=== PATIENT | female | born 1955 | race Caucasian/White ===

== ENCOUNTER 2018-02-20 08:43 | Emergency (ER) | payer OTHER ==
[~2018-02-20] VITALS: Ht 167.6 cm; Wt 109.6 kg
[~2018-02-20 08:43] MED LIST: HYDR25TA5 PO; METO50TA16 PO; RIVA1.5T PO
[2018-02-20 08:54] VITALS: TEMP 36.8; Ht 167.6 cm; Wt 109.6 kg
[2018-02-20 09:28] LABS: BASO % 0.2 %; BASO ABS # 0.01 K/uL (0-0.2); EOS % 0.9 %; EOS ABS # 0.05 K/uL (0-0.5); HEMATOCRIT 38.8 % (37-47); HEMOGLOBIN 12.9 g/dL (12.0-16.0); IG# 0.02 K/uL (0.00-0.02); LYMPH % 26.3 %; LYMPH ABS # 1.41 K/uL (1.2-3.4); MEAN CORPUSCULAR HEMOGLOBIN 31.9 pg (25-34); MEAN CORPUSCULAR HGB CONC 33.2 g/dl (32-36); MEAN PLATELET VOLUME 10.5 fL (7.4-10.4); MONO % 12.1 %; MONO ABS # 0.65 K/uL (0.11-0.59); NEUT % 60.1 %; NEUT ABS # 3.23 K/uL (1.4-6.5); PLATELET COUNT 193 K/uL (130-400); RED CELL DISTRIBUTION WIDTH CV 12.8 % (11.5-14.5); RED CELL DISTRIBUTION WIDTH SD 44.7 fL (36.4-46.3); WHITE BLOOD COUNT 5.37 K/uL (4.8-10.8)
--- NOTE | 2018-02-20 09:38 | DIAGNOSTIC IMAGING REPORT ---
CHEST ONE VIEW PORTABLE CLINICAL HISTORY: Fever, sepsis, shortness of breath. COMPARISON STUDY: 02/19/2018 FINDINGS: The cardiac and mediastinal contours are normal. There is no evidence of focal pulmonary consolidation. There is no evidence of failure. No pleural effusions are visualized.[ Slight prominence of the basilar markings, are likely secondary to atelectatic changes IMPRESSION: No active disease in the chest. Electronically signed by: Telly Lora M.D. 02/20/2018 9:37 AM Dictated Date/Time: 02/20/2018 9:36 AM
[2018-02-20 09:45] LABS: BLOOD UREA NITROGEN 13 mg/dl (7-18); CALCIUM 8.1 mg/dl (8.5-10.1); CARBON DIOXIDE 24 mmol/L (21-32); CREATININE 1.02 mg/dl (0.60-1.20); GLUCOSE 90 mg/dl (70-99); POTASSIUM 3.6 mmol/L (3.5-5.1); SODIUM 141 mmol/L (136-145)
[2018-02-20 09:50] LABS: CKMB 1.6 ng/ml (0.5-3.6)
[2018-02-20] MEDS ORDERED: MULT-506 PO (09:51)
[2018-02-20] MEDS ORDERED: METO25TA56 PO (09:51)
[2018-02-20] MEDS ORDERED: OMEG10007 PO (09:51)
[2018-02-20] MEDS ORDERED: LEVO75TA5 PO (09:51)
[2018-02-20] MEDS ORDERED: NIAC50TA9 PO (09:51)
[2018-02-20] MEDS ORDERED: GLIM1TAB2 PO (09:51)
[2018-02-20] MEDS ORDERED: TURM500T PO (09:51)
[2018-02-20 09:52] LABS: PTT PATIENT 25.4 SECONDS (21.0-31.0)
[2018-02-20] MEDS ORDERED: OPTIRAY 320 IV PRN (10:00)
--- NOTE | 2018-02-20 10:19 | DIAGNOSTIC IMAGING REPORT ---
CT ANGIOGRAM OF THE CHEST CLINICAL HISTORY: Fever, sepsis, shortness of breath. COMPARISON STUDY: 11/21/2014 TECHNIQUE: Following the IV administration of 94 mL of Optiray-320, CT angiogram of the thorax was performed from the thoracic inlet to the lung bases utilizing the pulmonary embolus protocol. Images are reviewed in the axial, sagittal, and coronal planes. IV contrast was administered without complication. MIP imaging was performed. A dose lowering technique was utilized adhering to the principles of ALARA. CT DOSE: 685.05 mGy.cm FINDINGS: There is hepatic steatosis. Mediastinal and hilar lymph nodes are the upper limits of normal in size There was no evidence of thoracic aortic dilatation. There is a tiny right lower lobe pulmonary artery filling defect. A similar but larger filling defect was present on the 2014 study. It is therefore difficult to determine whether this is acute or chronic. No pleural effusions are visualized. There is respiratory motion artifact. There are dependent atelectatic changes. There is mild lower lobe bronchial wall thickening. There is no lobar consolidation. There is a calcified right upper lobe granuloma. There is a noncalcified 3 mm right upper lobe pulmonary nodule as visualized in image #217/288. This measured 2 mm in 2015. There is a 2.5 mm left lower lobe point nodule as visualized in image #138/288. Also evident is a 2.5 mm left lower pulmonary nodule as visualized in image #119/288. IMPRESSION: 1. Tiny right lower lobe pulmonary artery embolus. This is smaller than on the prior November 2014 study, and is therefore age-indeterminate. Correlation with leg ultrasonography would seem prudent. 2. Hepatic steatosis 3. Scattered tiny pulmonary nodules. In a low risk patient, no further follow-up is indicated. In a high risk patient, a 12 month follow-up is optional. Please refer to below summary of Fleischner criteria recommendations for follow-up of incidental CT nodules (Soraya Puga, Guidelines for management of small pulmonary nodules detected on CT scans: A statement from the Fleischner Society, Radiology 237: [phone].) SOLID NODULES Solitary nodule size: <6 mm * low risk patients: no follow-up needed * high risk patients: optional CT at 12 months Solitary nodule size: 6-8 mm * low risk patients: follow-up at 6-12 months, then consider further follow-up at 18-24 months * high risk patients: initial follow-up CT at 6-12 months and then at 18-24 months if no change Solitary nodule size: >8 mm * either low or high risk patients - consider follow-up CT at 3 months, and/or CT-PET, and/or biopsy Multiple nodules size: <6 mm * low risk patients: no routine follow-up * high risk patients: optional CT at 12 months Multiple nodules size: 6-8 mm * low risk patients: follow-up at 3-6 months, then consider further follow-up at 18-24 months * high risk patients: follow-up at 3-6 months, then at 18-24 months if no change Multiple nodules size: >8 mm * low risk patients: follow-up at 3-6 months, then consider further follow-up at 18-24 months * high risk patients: follow-up at 3-6 months, then at 18-24 months if no change Note: newly detected indeterminate nodule in persons 35 years of age or older. * low risk patients: minimal or absent history of smoking and/or other known risk factors * high risk patients: history of smoking or of other known risk factors (e.g. first degree relative with lung cancer, or exposure to asbestos, radon, uranium) * if a nodule up to 8 mm is partly solid or is ground glass further follow-up is required after 24 months to exclude possible slow growing adenocarcinoma (JAYLENE) SUBSOLID NODULES Solitary pure ground-glass nodule * nodule size <6 mm - no CT follow-up required * nodule size >=6 mm - follow-up CT at 6-12 months, then every 2 years until 5 years Solitary part-solid nodule * nodule size <6 mm - no CT follow-up required * nodule size >=6 mm - follow-up CT at 3-6 months. If unchanged, and solid component remains <6 mm, then annual follow-up for 5 years Multiple subsolid nodules * nodule size <6 mm - follow-up CT at 3-6 months, consider further follow-up at 2 and 4 years if stable * nodule size >=6 mm - follow-up CT at 3-6 months, subsequent management based on the most suspicious nodule(s) Electronically signed by: Telly Lora M.D. 02/20/2018 10:17 AM Dictated Date/Time: 02/20/2018 10:07 AM
--- NOTE | 2018-02-20 11:32 | DIAGNOSTIC IMAGING REPORT ---
ULTRASOUND VENOUS DOPPLER LWR EXT BILA CLINICAL HISTORY: Age-indeterminate pulmonary embolus COMPARISON STUDY: 03/12/2015 FINDINGS: Real-time and color flow Doppler imaging were performed. Flow was seen within the femoral, popliteal and calf veins with no intraluminal thrombus demonstrated. The saphenous vein is patent. IMPRESSION: No evidence of deep venous thrombosis. Electronically signed by: Telly Lora M.D. 02/20/2018 11:31 AM Dictated Date/Time: 02/20/2018 11:30 AM
[2018-02-20 11:48] VITALS: BP 165/92; PULSE 65; O2SAT 99
--- NOTE | 2018-02-20 11:57 | EMERGENCY ROOM VISIT NOTE ---
History Report prepared by Gini: Tima Ramesh Under the Supervision of: Lele SantosO. First contact with patient: 09:07 Chief Complaint: SWELLING TO EXTREMITY Stated Complaint: SWOLLEN LEGS, SOB, WHEEZING History of Present Illness The patient is a 62 year old female who presents to the Emergency Room with complaints of constant bilateral lower extremity swelling that began 1.5 weeks ago. She rates her pain as 3/10. The patient had blood work done by her PCP ( Dr. Shirley Shepard, [facility]) yesterday which showed an elevated D-Dimer and was referred to the ED for a CT. The patient reports SOB and wheezing. She has a history of blood clots and takes Aspirin. The patient denies chest pain. Of note, the patient recently traveled to [place]. Source of History: patient Onset: 1.5 weeks ago Position: leg (bilateral) Symptom Intensity: pain rated as 3/10 Quality: other (swelling) Timing: constant Associated Symptoms: + SOB, No chest pain Review of Systems See HPI for pertinent positives & negatives. A total of 10 systems reviewed and were otherwise negative. Past Medical & Surgical Medical Problems: (1) Breast lump in female (2) Rectal bleed Social History Smoking Status: Never Smoker Drug Use: none Marital Status: Housing Status: lives with family Occupation Status: employed Current/Historical Medications Scheduled Fish Oil ([place]-3), 1 CAP PO DAILY Glimepiride (Glimepiride), 1 TAB PO DAILY Levothyroxine Sodium (Levothyroxine Sodium), 1 TAB PO DAILY Metoprolol Tartrate (Lopressor) (Lopressor), 12.5 MG PO BID Multivitamin (Multivitamin), 1 TAB PO DAILY Niacin (Niacin), 50 MG PO DAILY Turmeric (Curcuma Longa) (Turmeric), 1 TAB PO DAILY Allergies Coded Allergies: Metformin (Unverified Adverse Reaction, Mild, CAUSES HIGH BLOOD PRESSURE, 02/20/18) Physical Exam Vital Signs Date Time Temp Pulse Resp B/P (MAP) Pulse Ox O2 Delivery O2 Flow Rate FiO2 02/20/18 11:48 65 18 165/92 99 Room Air 02/20/18 10:23 75 18 184/75 98 Room Air 02/20/18 08:54 36.8 79 18 160/81 97 Room Air Physical Exam CONSTITUTIONAL/VITAL SIGNS: Reviewed / noted above. GENERAL: Non-toxic in appearance. INTEGUMENTARY: Warm, dry, and [place]. HEAD: Normocephalic. EYES: without scleral icterus or trauma. ENT/OROPHARYNX: clear and moist. LYMPHADENOPATHY/NECK: Is supple without lymphadenopathy or meningismus. RESPIRATORY: Lungs clear and equal. CARDIOVASCULAR: Regular rate and rhythm. GI/ABDOMEN: Soft and nontender. No organomegaly or pulsatile mass. No rebound or guarding. Normal bowel sounds. EXTREMITIES: Mild bilateral pedal edema. Warm and well perfused. BACK: No CVA tenderness. NEUROLOGICAL: Intact without focal deficits. PSYCHIATRIC: normal affect. MUSCULOSKELETAL: Normally developed with good muscle tone. Medical Decision & Procedures ER Provider Diagnostic Interpretation: Radiology results as stated below per my review and radiologist interpretation: CHEST ONE VIEW PORTABLE CLINICAL HISTORY: Fever, sepsis, shortness of breath. COMPARISON STUDY: 02/19/2018 FINDINGS: The cardiac and mediastinal contours are normal. There is no evidence of focal pulmonary consolidation. There is no evidence of failure. No pleural effusions are visualized.[ Slight prominence of the basilar markings, are likely secondary to atelectatic changes IMPRESSION: No active disease in the chest. Electronically signed by: Telly Lora M.D. 02/20/2018 9:37 AM Dictated Date/Time: 02/20/2018 9:[address] ANGIOGRAM OF THE CHEST CLINICAL HISTORY: Fever, sepsis, shortness of breath. COMPARISON STUDY: 11/21/2014 TECHNIQUE: Following the IV administration of 94 mL of Optiray-320, CT angiogram of the thorax was performed from the thoracic inlet to the lung bases utilizing the pulmonary embolus protocol. Images are reviewed in the axial, sagittal, and coronal planes. IV contrast was administered without complication. MIP imaging was performed. A dose lowering technique was utilized adhering to the principles of ALARA. CT DOSE: 685.05 mGy.cm FINDINGS: There is hepatic steatosis. Mediastinal and hilar lymph nodes are the upper limits of normal in size There was no evidence of thoracic aortic dilatation. There is a tiny right lower lobe pulmonary artery filling defect. A similar but larger filling defect was present on the 2014 study. It is therefore difficult to determine whether this is acute or chronic. No pleural effusions are visualized. There is respiratory motion artifact. There are dependent atelectatic changes. There is mild lower lobe bronchial wall thickening. There is no lobar consolidation. There is a calcified right upper lobe granuloma. There is a noncalcified 3 mm right upper lobe pulmonary nodule as visualized in image #217/288. This measured 2 mm in 2015. There is a 2.5 mm left lower lobe point nodule as visualized in image #138/288. Also evident is a 2.5 mm left lower pulmonary nodule as visualized in image #119/288. IMPRESSION: 1. Tiny right lower lobe pulmonary artery embolus. This is smaller than on the prior November 2014 study, and is therefore age-indeterminate. Correlation with leg ultrasonography would seem prudent. 2. Hepatic steatosis 3. Scattered tiny pulmonary nodules. In a low risk patient, no further follow-up is indicated. In a high risk patient, a 12 month follow-up is optional. Please refer to below summary of Fleischner criteria recommendations for follow-up of incidental CT nodules (Soraya Puga, Guidelines for management of small pulmonary nodules detected on CT scans: A statement from the Fleischner Society, Radiology 237: [phone].) SOLID NODULES Solitary nodule size: <6 mm * low risk patients: no follow-up needed * high risk patients: optional CT at 12 months Solitary nodule size: 6-8 mm * low risk patients: follow-up at 6-12 months, then consider further follow-up at 18-24 months * high risk patients: initial follow-up CT at 6-12 months and then at 18-24 months if no change Solitary nodule size: >8 mm * either low or high risk patients - consider follow-up CT at 3 months, and/or CT-PET, and/or biopsy Multiple nodules size: <6 mm * low risk patients: no routine follow-up * high risk patients: optional CT at 12 months Multiple nodules size: 6-8 mm * low risk patients: follow-up at 3-6 months, then consider further follow-up at 18-24 months * high risk patients: follow-up at 3-6 months, then at 18-24 months if no change Multiple nodules size: >8 mm * low risk patients: follow-up at 3-6 months, then consider further follow-up at 18-24 months * high risk patients: follow-up at 3-6 months, then at 18-24 months if no change Note: newly detected indeterminate nodule in persons 35 years of age or older. * low risk patients: minimal or absent history of smoking and/or other known risk factors * high risk patients: history of smoking or of other known risk factors (e.g. first degree relative with lung cancer, or exposure to asbestos, radon, uranium) * if a nodule up to 8 mm is partly solid or is ground glass further follow-up is required after 24 months to exclude possible slow growing adenocarcinoma (JAYLENE) SUBSOLID NODULES Solitary pure ground-glass nodule * nodule size <6 mm - no CT follow-up required * nodule size >=6 mm - follow-up CT at 6-12 months, then every 2 years until 5 years Solitary part-solid nodule * nodule size <6 mm - no CT follow-up required * nodule size >=6 mm - follow-up CT at 3-6 months. If unchanged, and solid component remains <6 mm, then annual follow-up for 5 years Multiple subsolid nodules * nodule size <6 mm - follow-up CT at 3-6 months, consider further follow-up at 2 and 4 years if stable * nodule size >=6 mm - follow-up CT at 3-6 months, subsequent management based on the most suspicious nodule(s) Electronically signed by: Telly Lora M.D. 02/20/2018 10:17 AM Dictated Date/Time: 02/20/2018 10:07 AM ULTRASOUND VENOUS DOPPLER LWR EXT TOMAS CLINICAL HISTORY: Age-indeterminate pulmonary embolus COMPARISON STUDY: 03/12/2015 FINDINGS: Real-time and color flow Doppler imaging were performed. Flow was seen within the femoral, popliteal and calf veins with no intraluminal thrombus demonstrated. The saphenous vein is patent. IMPRESSION: No evidence of deep venous thrombosis. Electronically signed by: Telly Lora M.D. 02/20/2018 11:31 AM Dictated Date/Time: 02/20/2018 11:30 AM Laboratory Results 02/20/18 09:20 Red Blood Count 4.04, Mean Corpuscular Volume 96.0, Mean Corpuscular Hemoglobin 31.9, Mean Corpuscular Hemoglobin Concent 33.2, Mean Platelet Volume 10.5, Neutrophils (%) (Auto) 60.1, Lymphocytes (%) (Auto) 26.3, Monocytes (%) (Auto) 12.1, Eosinophils (%) (Auto) 0.9, Basophils (%) (Auto) 0.2, Neutrophils # (Auto ) 3.23, Lymphocytes # (Auto) 1.41, Monocytes # (Auto) 0.65, Eosinophils # (Auto ) 0.05, Basophils # (Auto) 0.01 02/20/18 09:20 Test 02/20/18 09:20 White Blood Count 5.37 K/uL (4.8-10.8) Red Blood Count 4.04 M/uL (4.2-5.4) Hemoglobin 12.9 g/dL (12.0-16.0) Hematocrit 38.8 % (37-47) Mean Corpuscular Volume 96.0 fL (80-100) Mean Corpuscular Hemoglobin 31.9 pg (25-34) Mean Corpuscular Hemoglobin Concent 33.2 g/dl (32-36) Platelet Count 193 K/uL (130-400) Mean Platelet Volume 10.5 fL (7.4-10.4) Neutrophils (%) (Auto) 60.1 % Lymphocytes (%) (Auto) 26.3 % Monocytes (%) (Auto) 12.1 % Eosinophils (%) (Auto) 0.9 % Basophils (%) (Auto) 0.2 % Neutrophils # (Auto) 3.23 K/uL (1.4-6.5) Lymphocytes # (Auto) 1.41 K/uL (1.2-3.4) Monocytes # (Auto) 0.65 K/uL (0.11-0.59) Eosinophils # (Auto) 0.05 K/uL (0-0.5) Basophils # (Auto) 0.01 K/uL (0-0.2) RDW Standard Deviation 44.7 fL (36.4-46.3) RDW Coefficient of Variation 12.8 % (11.5-14.5) Immature Granulocyte % (Auto) 0.4 % Immature Granulocyte # (Auto) 0.02 K/uL (0.00-0.02) Prothrombin Time 10.6 SECONDS (9.0-12.0) Prothromb Time International Ratio 1.0 (0.9-1.1) Activated Partial Thromboplast Time 25.4 SECONDS (21.0-31.0) Partial Thromboplastin Ratio 1.0 D-Dimer 2020 ug/L FEU (0-500) Anion Gap 7.0 mmol/L (3-11) Est Creatinine Clear Calc Drug Dose 71.7 ml/min Estimated GFR () 68.3 Estimated GFR (Non- 58.9 BUN/Creatinine Ratio 12.8 (10-20) Calcium Level 8.1 mg/dl (8.5-10.1) Total Creatine Kinase 85 U/L (26-192) Creatine Kinase MB 1.6 ng/ml (0.5-3.6) Creatine Kinase MB Ratio 1.9 (0-3.0) Troponin I < 0.015 ng/ml (0-0.045) Laboratory results as stated above per my review. ECG Per My Interpretation Indication: SOB/dyspnea Rate (beats per minute): 72 Rhythm: sinus rhythm Findings: PAC, other (No ST elevation) ED Course 0907: Previous medical records were reviewed. The patient was evaluated in room B11B. A complete history and physical examination was performed. 1055: I checked on the patient and updated her on the results of her imaging. I told the patient that we will be doing an ultrasound of her legs. 1200: On reevaluation, the patient is resting. I discussed the results and findings with the patient. She verbalized agreement of the treatment plan. She was discharged home. Medical Decision the differential was considered includes acute myocardial infarction, acute coronary syndrome, myocarditis, pericarditis, pericardial effusions /tamponade, esophageal perforation, thoracic aortic dissection, pulmonary embolism, pneumonia, pneumothorax, pancreatitis, shingles, acute cholecystitis, perforated abdominal viscus. This is a 62-year-old female who presents to the ED with a chief complaint of positive D-dimer test. The patient states that she was at her PCPs office yesterday and had some blood work and had a positive d-dimer. She reports that she was there with a chief complaint of some shortness of breath over the past week as well as some lower extremity edema for the past week and a half. The patient does have a history of DVT in 2004 is currently not on anticoagulation. The patient's physical exam as noted above. Nothing significant other than some lower extremity edema. Initial blood pressure was slightly elevated. The patient did have a positive d-dimer here. PRP was normal CBC is normal, EKG shows a sinus rhythm without ischemic changes. CT scan of the chest reveals a tiny right lower lobe pulmonary artery embolus of uncertain age. It was reported that it is smaller than one seen in 2015. Lower extremity ultrasound is recommended. These were performed and did not reveal DVT. The patient was told the results. She reports that she was not started on anticoagulation 2014. She is felt to be stable for discharge. Medication Reconcilliation Current Medication List: was personally reviewed by me Blood Pressure Screening Patient's blood pressure: Elevated blood pressure Blood pressure disposition: Elevated BP felt to be situational Impression Primary Impression: Swelling of left extremity Additional Impressions: Swelling of right extremity Dyspnea Scribe Attestation The scribe's documentation has been prepared under my direction and personally reviewed by me in its entirety. I confirm that the note above accurately reflects all work, treatment, procedures, and medical decision making performed by me. Departure Information Dispostion Home / Self-Care Referrals Shirley Shepard M.D. (PCP) Patient Instructions My [facility] Additional Instructions Follow-up with your doctor for further care and evaluation in 1-2 days. Return to the emergency department for worsening or new symptoms or any concerns. You have been examined and treated today on an emergency basis only. This is not a substitute for, or an effort to provide, complete comprehensive medical care. It is impossible to recognize and treat all injuries or illnesses in a single emergency department visit. It is therefore important that you follow up closely with your doctor. Call as soon as possible for an appointment. Problem Qualifiers
== END 2018-02-20 12:04 | disposition home or self-care (01) ==
LOC: C.EDB 08:45
DX: R60.0 Localized edema (principal); R06.00 Dyspnea, unspecified; Z86.718 Personal history of other venous thrombosis and embolism; Z79.82 Long term (current) use of aspirin; Z88.8 Allergy status to other drugs, medicaments and biological substances; Z79.899 Other long term (current) drug therapy